=== PATIENT | female | born 1960 | race Asian ===

== ENCOUNTER 2017-09-28 14:50 | Emergency (ER) | payer MEDICAID, OTHER ==
[~2017-09-28] VITALS: Ht 157.5 cm; Wt 73.6 kg
[~2017-09-28 14:50] MED LIST: BACL10TA PO; CARB15OT AD; GABA-529 PO; GABA-531 PO; HYDR-3965 PO; MELO-107 PO; TRAM50TA4 PO
[2017-09-28 14:54] VITALS: BP 161/85
== END 2017-09-28 16:34 | disposition home or self-care (01) ==
LOC: EMS 14:51
DX: Z76.0 Encounter for issue of repeat prescription (principal); F17.210 Nicotine dependence, cigarettes, uncomplicated; Z88.0 Allergy status to penicillin; Z88.8 Allergy status to other drugs, medicaments and biological substances; Z91.041 Radiographic dye allergy status
CPT/HCPCS: 99283

== ENCOUNTER 2017-11-17 17:26 | Emergency (ER) | payer OTHER ==
[~2017-11-17] VITALS: Ht 157.5 cm; Wt 74.1 kg
[~2017-11-17 17:26] MED LIST changes: -CARB15OT AD; +DSS100 PO; -GABA-529 PO; -HYDR-3965 PO; +METO25XL PO; +OXYC-38 PO
[2017-11-17 17:48] LABS: GLUCOSE,POINT OF CARE 152 MG/DL (70-110)
[2017-11-17 18:00] VITALS: BP 138/65
== END 2017-11-17 18:14 | disposition home or self-care (01) ==
LOC: EMS 17:28
DX: T83.9XXA Unspecified complication of genitourinary prosthetic device, implant and graft, initial encounter (principal); F17.210 Nicotine dependence, cigarettes, uncomplicated; Z46.6 Encounter for fitting and adjustment of urinary device; Z88.0 Allergy status to penicillin; Z88.8 Allergy status to other drugs, medicaments and biological substances
CPT/HCPCS: 82962; 99282

== ENCOUNTER 2017-11-24 18:21 | Emergency (ER) | payer OTHER ==
[~2017-11-24] VITALS: Ht 157.5 cm; Wt 74.1 kg
[2017-11-24] MEDS ORDERED: ALBU8HFA IH (18:28)
[2017-11-24 20:53] VITALS: BP 155/86
== END 2017-11-24 20:59 | disposition home or self-care (01) ==
LOC: EMS 18:22
DX: T83.091A Other mechanical complication of indwelling urethral catheter, initial encounter (principal); F17.210 Nicotine dependence, cigarettes, uncomplicated; Z85.41 Personal history of malignant neoplasm of cervix uteri; Z88.0 Allergy status to penicillin; Z88.8 Allergy status to other drugs, medicaments and biological substances; Y84.6 Urinary catheterization as the cause of abnormal reaction of the patient, or of later complication, without mention of misadventure at the time of the procedure
CPT/HCPCS: 51702; 99284

== ENCOUNTER 2017-11-25 17:07 | Emergency (ER) | payer OTHER ==
[~2017-11-25] VITALS: Ht 157.5 cm; Wt 74.1 kg
[~2017-11-25 17:07] MED LIST changes: +ALBU8HFA IH
[2017-11-25] MEDS ORDERED: OxyCODONE HCL/ACETAMINOPHEN 5-325 MG TABLET PO ONE (20:15)
[2017-11-25 22:33] VITALS: BP 115/75
== END 2017-11-25 22:36 | disposition home or self-care (01) ==
LOC: EMS 17:24
DX: T83.038A Leakage of other urinary catheter, initial encounter (principal); F17.210 Nicotine dependence, cigarettes, uncomplicated; Y84.6 Urinary catheterization as the cause of abnormal reaction of the patient, or of later complication, without mention of misadventure at the time of the procedure
CPT/HCPCS: 51705; 99284